=== PATIENT | male | born 1945 | race Caucasian/White ===

== ENCOUNTER 2021-01-23 21:51 | Emergency (ER) | payer BC, MEDICARE, OTHER ==
[~2021-01-23] VITALS: Ht 162.6 cm; Wt 59.0 kg
[~2021-01-23 21:51] MED LIST: INDLA80C PO; OLAN2.5T28 PO
[2021-01-23] MEDS ORDERED: normal saline 1000ML IV soln IV ONE (22:25)
[2021-01-24 00:26] LABS: BASOPHILS % (AUTO) 0.6 % (0-1); EOSINOPHILS # (AUTO) 0.1 X10'3 (0-0.9); EOSINOPHILS % (AUTO) 1.4 % (0-6); HEMATOCRIT 35.1 % (42.0-52.0); HEMOGLOBIN 11.7 g/dl (14.0-17.9); LYMPHOCYTES # (AUTO) 1.2 X10'3 (1.1-4.8); LYMPHOCYTES % (AUTO) 19.6 % (21-51); MEAN CORPUSCULAR HEMOGLOBIN 31.7 PG (27.0-31.0); MEAN CORPUSCULAR HGB CONC 33.3 g/dL (33.0-36.5); MEAN CORPUSCULAR VOLUME 95.1 FL (78-98); MEAN PLATELET VOLUME 7.1 FL (7.4-10.4); MONOCYTES # (AUTO) 0.6 X10'3 (0-0.9); MONOCYTES % (AUTO) 10.6 % (2-12); NEUTROPHILS # (AUTO) 4.1 X10'3 (1.8-7.7); NEUTROPHILS % (AUTO) 67.8 % (42-75); PLATELET COUNT 148 X10'3 (140-440); RED BLOOD COUNT 3.69 X10'6 (4.70-6.10); RED CELL DISTRIBUTION WIDTH 14.2 % (11.5-14.5)
[2021-01-24 00:41] LABS: ALANINE AMINOTRANSFERASE 25 U/L (12-78); ALBUMIN 3.3 G/DL (3.4-5.0); ALBUMIN/GLOBULIN RATIO 1.3 (1.1-1.5); ALKALINE PHOSPHATASE 62 IU/L (46-116); ANION GAP 4 (8-16); ASPARTATE AMINO TRANSFERASE 21 U/L (10-37); BILIRUBIN,TOTAL 0.2 MG/DL (0.1-1.0); BLOOD UREA NITROGEN 47 MG/DL (7-18); BUN/CREATININE RATIO 24.9 (5.4-32.0); CALCIUM 8.7 MG/DL (8.5-10.1); CHLORIDE 107 MMOL/L (99-107); CREATININE 1.89 MG/DL (0.60-1.10); GLUCOSE 117 MG/DL (70-104); POTASSIUM 4.3 MMOL/L (3.5-5.1); SODIUM 139 MMOL/L (135-145); TOTAL CARBON DIOXIDE 27.8 MMOL/L (24-32); TOTAL PROTEIN 5.9 G/DL (6.4-8.2); eGFR 35 ML/MIN
[2021-01-24 00:49] LABS: MAGNESIUM 2.2 MG/DL (1.5-2.4)
[2021-01-24] MEDS ORDERED: potassium Cl 20 mEq SR tablet PO PRN ×2 (01:30)
[2021-01-24] MEDS ORDERED: acetaminophen 325mg tablet PO PRN (01:30)
[2021-01-24] MEDS ORDERED: bisacodyl 10mg suppository rectal RC PRN (01:30)
[2021-01-24] MEDS: normal saline 1000ml 1,000 ML IV SCH ×2 (01:30→08:46)
[2021-01-24] MEDS ORDERED: ondansetron/PF 4mg/2ml inj IV PRN (01:30)
[2021-01-24] MEDS ORDERED: potassium Cl 40MEQ/1/2NS 520ml 520 ML IV PRN ×2 (01:30)
[2021-01-24] MEDS ORDERED: magnesium 2GM in 50ml NS 50 ML IV PRN (01:30)
[2021-01-24] MEDS ORDERED: magnesium 4gm in 100ml NS 100 ML IV PRN (01:30)
[2021-01-24 04:06] LABS: COLOR,URINE YELLOW (Yellow); UA COLLECTION TYPE URINAL
[2021-01-24 04:07] LABS: CLARITY,URINE SLIGHTLY CLOUDY (Clear); GLUCOSE, URINE NEGATIVE (Neg); KETONES,URINE NEGATIVE (Neg); NITRITES, URINE NEGATIVE (Neg); OCCULT BLOOD,URINE NEGATIVE (Neg); PROTEIN,URINE NEGATIVE (Neg); UROBILINOGEN,URINE 0.2 E.U/dL (0.2-1.0)
[2021-01-24 04:08] LABS: LEUKOCYTE ESTERASE ,URINE MODERATE (Neg)
[2021-01-24 04:09] LABS: BACTERIA,URINE 1+ /HPF (Neg); MUCUS STRANDS FEW /LPF (Neg); RBC,URINE NONE SEEN /HPF (0-2); SQUAMOUS EPITHELIAL CELL,UR FEW /LPF (FEW); WBC,URINE 0-4 /HPF (0-4)
[2021-01-24 04:10] LABS: TRANSITIONAL EPI CELLS,URINE FEW /HPF
[2021-01-24 04:11] LABS: WBC CLUMPS,URINE FEW /HPF (NEGATIVE)
[2021-01-24] MEDS ORDERED: docusate sod 100mg capsule PO SCH (08:00)
[2021-01-24] MEDS ORDERED: K and/or MAG REPLACEMENT MC SCH (08:00)
--- NOTE | 2021-01-24 08:52 | NUR ---
LAB DRAWING AT BEDSIDE
[2021-01-24 09:16] LABS: BASOPHILS % (AUTO) 0.4 % (0-1); EOSINOPHILS # (AUTO) 0.1 X10'3 (0-0.9); EOSINOPHILS % (AUTO) 1.1 % (0-6); HEMOGLOBIN 12.1 g/dl (14.0-17.9); LYMPHOCYTES # (AUTO) 1.1 X10'3 (1.1-4.8); LYMPHOCYTES % (AUTO) 14.1 % (21-51); MEAN CORPUSCULAR HEMOGLOBIN 31.8 PG (27.0-31.0); MEAN CORPUSCULAR HGB CONC 33.6 g/dL (33.0-36.5); MEAN CORPUSCULAR VOLUME 94.6 FL (78-98); MONOCYTES # (AUTO) 0.8 X10'3 (0-0.9); MONOCYTES % (AUTO) 9.7 % (2-12); NEUTROPHILS # (AUTO) 6.1 X10'3 (1.8-7.7); NEUTROPHILS % (AUTO) 74.7 % (42-75); PLATELET COUNT 151 X10'3 (140-440); RED BLOOD COUNT 3.81 X10'6 (4.70-6.10); RED CELL DISTRIBUTION WIDTH 14.3 % (11.5-14.5); WHITE BLOOD COUNT 8.1 X10'3 (4.5-11.0)
[2021-01-24 09:28] LABS: ALANINE AMINOTRANSFERASE 35 U/L (12-78); ALBUMIN 3.2 G/DL (3.4-5.0); ALBUMIN/GLOBULIN RATIO 1.1 (1.1-1.5); ALKALINE PHOSPHATASE 63 IU/L (46-116); ANION GAP 7 (8-16); ASPARTATE AMINO TRANSFERASE 34 U/L (10-37); BILIRUBIN,TOTAL 0.4 MG/DL (0.1-1.0); BLOOD UREA NITROGEN 35 MG/DL (7-18); BUN/CREATININE RATIO 24.6 (5.4-32.0); CHLORIDE 108 MMOL/L (99-107); CREATININE 1.42 MG/DL (0.60-1.10); GLUCOSE 96 MG/DL (70-104); POTASSIUM 4.1 MMOL/L (3.5-5.1); SODIUM 140 MMOL/L (135-145); eGFR 48 ML/MIN
[2021-01-24] MEDS ORDERED: LISI10TA27 PO (10:48)
[2021-01-24] MEDS ORDERED: MULT-1085 PO (10:48)
[2021-01-24] MEDS ORDERED: SERT-434 PO (10:48)
[2021-01-24] MEDS ORDERED: DOCU-148 PO (10:48)
[2021-01-24] MEDS ORDERED: ATOR20TA PO (10:48)
[2021-01-24] MEDS ORDERED: BENZ0.5T43 PO (10:48)
[2021-01-24] MEDS ORDERED: RISP2TAB85 PO (10:48)
--- NOTE | 2021-01-24 10:51 | NUR ---
CALL TO THE ASSISTED AND SPOKE WITH THE NURSE. STATES PT BP IS NORMALLY LOW, PREVIOUS BP AT ASSISTED ARE 100/60,106/52, 104/60. PT ALERT SITTING IN BED EATING BREAKFAST WITHOUT DISTRESS AND NO COMPLAINTS. PT HAS NO PAIN. UPDATED PT MED LIST.
[2021-01-24 11:06] VITALS: BP 109/56
[2021-01-24] MEDS ORDERED: enoxaparin 40mg/0.4ml syringe SQ SCH (20:00)
== END 2021-01-24 13:41 ==
LOC: ER 21:52 → EEVIPCON 21:52 → UNDOADMIN 01-24 01:33 → ED HOLD 01-24 01:33 → UNDODISIN 01-24 15:00
DX: I95.9 Hypotension, unspecified (principal); Z79.899 Other long term (current) drug therapy
CPT/HCPCS: 36415; 71045; 80053; 81001; 83605; 83735; 83880; 84145; 84484; 85025; 87040; 87088; 93005; 96360; 96361; 99285; J7030; G0378